=== PATIENT | female | born 2000 | race Caucasian/White ===

== ENCOUNTER 2018-03-21 18:26 | Emergency (ER) | payer MEDICAID ==
[~2018-03-21] VITALS: Ht 175.3 cm; Wt 136.4 kg
[2018-03-21 18:38] VITALS: BP 132/82
[2018-03-21] MEDS ORDERED: epiNEPHrine inj 0.3 MG in BUPIVAcaine 0.5% inj/PF 29.7 ML SQ ONE (19:10)
[2018-03-21] MEDS ORDERED: LORazepam 1 MG tablet PO ONE ×2 (19:10→19:20)
[2018-03-21] MEDS ORDERED: HYDROcodone/acetaminophen 10/325mg tab PO ONE (19:10)
[2018-03-21] MEDS ORDERED: HYDROcodone/acetaminophen 5mg/325mg tablet PO ONE (19:20)
[2018-03-21] MEDS ORDERED: HYDR-3965 PO (20:25)
== END 2018-03-21 20:50 | disposition home or self-care (01) ==
LOC: ER 18:27
DX: S82.401A Unspecified fracture of shaft of right fibula, initial encounter for closed fracture (principal); W18.49XA Other slipping, tripping and stumbling without falling, initial encounter; Y93.89 Activity, other specified; Y92.89 Other specified places as the place of occurrence of the external cause; Y99.8 Other external cause status
CPT/HCPCS: 29515; 73610; 99284; A6449; J0171

== ENCOUNTER 2018-04-01 13:18 | Day surgery (SDC) | payer MEDICAID ==
[2018-03-30 14:26] LABS: BASOPHILS # (AUTO) 0.1 X10'3 (0-0.2); BASOPHILS % (AUTO) 0.9 % (0-1); EOSINOPHILS # (AUTO) 0.1 X10'3 (0-0.9); EOSINOPHILS % (AUTO) 1.1 % (0-6); LYMPHOCYTES # (AUTO) 2.4 X10'3 (1.1-4.8); LYMPHOCYTES % (AUTO) 21.1 % (21-51); MEAN CORPUSCULAR HEMOGLOBIN 27.1 PG (27.0-31.0); MEAN CORPUSCULAR HGB CONC 33.2 % (33.0-36.5); MEAN CORPUSCULAR VOLUME 81.7 FL (78-98); MEAN PLATELET VOLUME 9.8 FL (7.4-10.4); MONOCYTES # (AUTO) 0.6 X10'3 (0-0.9); MONOCYTES % (AUTO) 5.4 % (2-12); NEUTROPHILS # (AUTO) 8.3 X10'3 (1.8-7.7); NEUTROPHILS % (AUTO) 71.5 % (42-75); PRE OP HEMATOCRIT 39.9 % (35.0-45.0); PRE OP HEMOGLOBIN 13.3 g/dL (12.0-16.0); PRE OP PLATELET COUNT 407 X10'3 (140-440); RED BLOOD COUNT 4.88 X10'6 (4.20-5.60); RED CELL DISTRIBUTION WIDTH 14.9 % (11.5-14.5)
[2018-03-30 14:41] LABS: ALBUMIN 3.5 G/DL (3.4-5.0); ALBUMIN/GLOBULIN RATIO 0.8 (1.1-1.5); ALKALINE PHOSPHATASE 122 IU/L (20-180); BLOOD UREA NITROGEN 17 MG/DL (7-18); BUN/CREATININE RATIO 18.5 (6.6-38.0); CALCIUM 9.1 MG/DL (8.5-10.1); CHLORIDE 102 MMOL/L (99-107); CREATININE 0.92 MG/DL (0.40-0.90); PRE OP ALT 37 U/L (30-65); PRE OP ANION GAP 9 (8-16); PRE OP AST 20 U/L (10-37); PRE OP BILIRUB, TOTAL 0.5 MG/DL (0.0-1.0); PRE OP GLUCOSE 76 MG/DL (70-104); PRE OP POTASSIUM 3.7 MMOL/L (3.4-5.1); PRE OP SODIUM 138 MMOL/L (135-145); TOTAL CARBON DIOXIDE 27.3 MMOL/L (24-32); TOTAL PROTEIN 8.1 G/DL (6.4-8.2); eGFR 79 ML/MIN
[2018-03-30 14:54] LABS: HCG SERUM QL NEGATIVE
[~2018-04-01] VITALS: Ht 175.3 cm; Wt 127.2 kg
[2018-04-01] VITALS (8 sets, daily range): BP systolic 124–134; BP diastolic 66–75
[~2018-04-01 13:18] MED LIST: FLUO40CA PO; RISP0.5T3 PO; ceFAZolin inj. 3,000 MG in normal saline 100ml IV soln 100 ML IV ONE; famotidine 20mg tablet PO ONE; ringers solution, lacted 1,000 ML IV SCH; vancomycin inj 1,500 MG in normal saline 300ml IV soln IV ONE
[2018-04-01] MEDS ORDERED: ceFAZolin 1000mg inj ONE (15:18)
[2018-04-01] MEDS ORDERED: BUPIVAcaine/PF 2.5mg/ml (0.25%) 10ml vial ONE (15:19)
[2018-04-01] MEDS ORDERED: cloNIDine hcl/PF 100mcg/ml inj ONE (15:33)
[2018-04-01] MEDS ORDERED: ROPIVAcaine 0.5% (5mg/ml) 30ml vial ONE (15:33)
[2018-04-01] MEDS ORDERED: midazolam 2 mg/2 ml injection ONE (15:35)
[2018-04-01] MEDS ORDERED: fentaNYL/PF 50MCG/1 ML 2ML syringe ONE ×3 (15:35→16:57)
[2018-04-01] MEDS ORDERED: ringers solution, lacted 1,000 ML IV SCH (15:41)
[2018-04-01] MEDS ORDERED: meperidine/PF 25mg/ml syringe IV PRN ×3 (15:45)
[2018-04-01] MEDS ORDERED: morphine 4 MG/ML inj SYRINge IV PRN ×2 (15:45)
[2018-04-01] MEDS ORDERED: proCHLORperazine 10 MG/2 ml inj IV PRN (15:45)
[2018-04-01] MEDS ORDERED: ondansetron/PF 4mg/2ml inj IV PRN (15:45)
[2018-04-01] MEDS ORDERED: sevoflurane 250ml liquid IH ONE (16:01)
[2018-04-01] MEDS ORDERED: dexamethasone sod phosphate 10mg/ml inj ONE (16:01)
[2018-04-01] MEDS ORDERED: propofol inj 20 ML IV ONE (16:53)
[2018-04-01] MEDS ORDERED: ondansetron/PF 4mg/2ml inj ONE (16:53)
== END 2018-04-01 19:06 | disposition home or self-care (01) ==
LOC: PAS 13:18
PROVIDERS: ATTEND Orthopaedic Surgery
DX: S82.841A Displaced bimalleolar fracture of right lower leg, initial encounter for closed fracture (principal); G43.909 Migraine, unspecified, not intractable, without status migrainosus; I10 Essential (primary) hypertension; J45.998 Other asthma; E11.9 Type 2 diabetes mellitus without complications; G89.29 Other chronic pain; F41.8 Other specified anxiety disorders; F32.9 Major depressive disorder, single episode, unspecified; F90.8 Attention-deficit hyperactivity disorder, other type; E66.01 Morbid (severe) obesity due to excess calories; Z68.41 Body mass index [BMI] 40.0-44.9, adult; Z79.891 Long term (current) use of opiate analgesic; Z90.89 Acquired absence of other organs; Z98.890 Other specified postprocedural states; Z79.899 Other long term (current) drug therapy; W18.49XA Other slipping, tripping and stumbling without falling, initial encounter; Y93.89 Activity, other specified; Y92.89 Other specified places as the place of occurrence of the external cause; Y99.8 Other external cause status
CPT/HCPCS: 27814; 36415; 80053; 83036; 84703; 85025; 93005; A6449; C1713; J0690; J0735; J1100; J2250; J2405; J2704; J2795; J3010; J3370; J7030; J7120; A7000; J3490

== ENCOUNTER 2018-04-12 15:02 | Outpatient (CLI) | payer MEDICAID ==
[~2018-04-12 15:02] MED LIST changes: -ceFAZolin inj. 3,000 MG in normal saline 100ml IV soln 100 ML IV ONE; -famotidine 20mg tablet PO ONE; -ringers solution, lacted 1,000 ML IV SCH; -vancomycin inj 1,500 MG in normal saline 300ml IV soln IV ONE
[2018-04-12 15:17] VITALS: BP 130/79
[2018-04-12] MEDS ORDERED: LIDOcaine 2% 5ml jelly ONE (15:27)
== END 2018-04-12 16:30 | disposition home or self-care (01) ==
LOC: ORTHO 15:02
PROVIDERS: ATTEND Nurse Practitioner Family
DX: S82.841G Displaced bimalleolar fracture of right lower leg, subsequent encounter for closed fracture with delayed healing (principal); G43.909 Migraine, unspecified, not intractable, without status migrainosus; F32.9 Major depressive disorder, single episode, unspecified; W01.0XXD Fall on same level from slipping, tripping and stumbling without subsequent striking against object, subsequent encounter
CPT/HCPCS: 73600; 99214; A4590

== ENCOUNTER 2018-04-26 14:46 | Outpatient (CLI) | payer MEDICAID ==
[2018-04-26 14:47] VITALS: BP 133/90
== END 2018-04-26 15:39 | disposition home or self-care (01) ==
LOC: ORTHO 14:46
PROVIDERS: ATTEND Nurse Practitioner Family
DX: S82.841D Displaced bimalleolar fracture of right lower leg, subsequent encounter for closed fracture with routine healing (principal); G43.909 Migraine, unspecified, not intractable, without status migrainosus; F32.9 Major depressive disorder, single episode, unspecified; W01.0XXD Fall on same level from slipping, tripping and stumbling without subsequent striking against object, subsequent encounter
CPT/HCPCS: 73600; 99213

== ENCOUNTER 2018-05-24 13:22 | Outpatient (CLI) | payer MEDICAID ==
[2018-05-24 13:16] VITALS: BP 142/103
== END 2018-05-24 14:00 | disposition home or self-care (01) ==
LOC: ORTHO 13:22
PROVIDERS: ATTEND Nurse Practitioner Family
DX: S82.841D Displaced bimalleolar fracture of right lower leg, subsequent encounter for closed fracture with routine healing (principal); F90.9 Attention-deficit hyperactivity disorder, unspecified type; W01.0XXD Fall on same level from slipping, tripping and stumbling without subsequent striking against object, subsequent encounter
CPT/HCPCS: 73610

== ENCOUNTER 2018-06-14 13:10 | Outpatient (CLI) | payer MEDICAID ==
[2018-06-14 12:54] VITALS: BP 145/82
== END 2018-06-14 13:37 | disposition home or self-care (01) ==
LOC: ORTHO 13:10
PROVIDERS: ATTEND Nurse Practitioner Family
DX: S82.841D Displaced bimalleolar fracture of right lower leg, subsequent encounter for closed fracture with routine healing (principal); G43.909 Migraine, unspecified, not intractable, without status migrainosus; F32.9 Major depressive disorder, single episode, unspecified; W22.8XXD Striking against or struck by other objects, subsequent encounter
CPT/HCPCS: 73600; 99213

== ENCOUNTER 2018-07-13 13:39 | Outpatient (CLI) | payer MEDICAID ==
[2018-07-13 13:38] VITALS: BP 125/88
== END 2018-07-13 14:29 | disposition home or self-care (01) ==
LOC: ORTHO 13:39
PROVIDERS: ATTEND Nurse Practitioner Family
DX: S82.841D Displaced bimalleolar fracture of right lower leg, subsequent encounter for closed fracture with routine healing (principal); G43.909 Migraine, unspecified, not intractable, without status migrainosus; F32.9 Major depressive disorder, single episode, unspecified; W01.0XXD Fall on same level from slipping, tripping and stumbling without subsequent striking against object, subsequent encounter
CPT/HCPCS: 73600; 99213

== ENCOUNTER 2018-08-16 14:42 | Outpatient (CLI) | payer MEDICAID ==
[2018-08-16 14:55] VITALS: BP 154/86
== END 2018-08-16 15:25 | disposition home or self-care (01) ==
LOC: ORTHO 14:42
PROVIDERS: ATTEND Nurse Practitioner Family
DX: S82.841D Displaced bimalleolar fracture of right lower leg, subsequent encounter for closed fracture with routine healing (principal); Z79.899 Other long term (current) drug therapy; W18.49XD Other slipping, tripping and stumbling without falling, subsequent encounter
CPT/HCPCS: 73600; 99213

== ENCOUNTER 2018-11-06 16:46 | Emergency (ER) | payer MEDICAID ==
[~2018-11-06] VITALS: Ht 170.2 cm; Wt 131.6 kg
[2018-11-06 17:17] LABS: CLARITY,URINE SLIGHTLY CLOUDY (Clear); COLOR,URINE YELLOW (Yellow); GLUCOSE, URINE NEGATIVE (Neg); KETONES,URINE NEGATIVE (Neg); LEUKOCYTE ESTERASE ,URINE NEGATIVE (Neg); NITRITES, URINE NEGATIVE (Neg); OCCULT BLOOD,URINE LARGE (Neg); PROTEIN,URINE TRACE mg/dl (Neg); UROBILINOGEN,URINE 0.2 E.U/dL (0.2-1.0)
[2018-11-06 17:18] LABS: URINE HCG NEGATIVE (NEG)
[2018-11-06 17:23] LABS: UA COLLECTION TYPE CLN CATCH MIDSTREAM
[2018-11-06 17:27] LABS: RBC,URINE TNTC /HPF (0-2)
[2018-11-06 17:28] LABS: BACTERIA,URINE FEW /HPF (Neg); MUCUS STRANDS NONE SEEN /LPF (Neg); SQUAMOUS EPITHELIAL CELL,UR FEW /LPF (FEW)
[2018-11-06 17:45] LABS: BASOPHILS # (AUTO) 0.1 X10'3 (0-0.2); BASOPHILS % (AUTO) 0.4 % (0-1); EOSINOPHILS % (AUTO) 0.1 % (0-6); HEMATOCRIT 41.5 % (35.0-45.0); HEMOGLOBIN 13.6 g/dl (12.0-16.0); LYMPHOCYTES # (AUTO) 1.7 X10'3 (1.1-4.8); LYMPHOCYTES % (AUTO) 9.9 % (21-51); MEAN CORPUSCULAR HEMOGLOBIN 26.5 PG (27.0-31.0); MEAN CORPUSCULAR HGB CONC 32.7 g/dL (33.0-36.5); MEAN CORPUSCULAR VOLUME 81.1 FL (78-98); MEAN PLATELET VOLUME 9.8 FL (7.4-10.4); MONOCYTES # (AUTO) 0.6 X10'3 (0-0.9); MONOCYTES % (AUTO) 3.5 % (2-12); NEUTROPHILS % (AUTO) 86.1 % (42-75); PLATELET COUNT 352 X10'3 (140-440); RED BLOOD COUNT 5.12 X10'6 (4.20-5.60); RED CELL DISTRIBUTION WIDTH 15.1 % (11.5-14.5); WHITE BLOOD COUNT 17.4 X10'3 (4.5-11.0)
[2018-11-06 17:55] LABS: ALANINE AMINOTRANSFERASE 40 U/L (12-78); ALBUMIN 3.7 G/DL (3.4-5.0); ALBUMIN/GLOBULIN RATIO 0.9 (1.1-1.5); ALKALINE PHOSPHATASE 130 IU/L (20-180); ANION GAP 11 (8-16); ASPARTATE AMINO TRANSFERASE 22 U/L (10-37); BILIRUBIN,TOTAL 0.3 MG/DL (0.1-1.0); BLOOD UREA NITROGEN 8 MG/DL (7-18); BUN/CREATININE RATIO 9.4 (6.6-38.0); CALCIUM 9.1 MG/DL (8.5-10.1); CHLORIDE 105 MMOL/L (99-107); CREATININE 0.85 MG/DL (0.40-0.90); GLUCOSE 105 MG/DL (70-104); POTASSIUM 3.9 MMOL/L (3.5-5.1); SODIUM 139 MMOL/L (135-145); TOTAL PROTEIN 7.9 G/DL (6.4-8.2); eGFR 86 ML/MIN
[2018-11-06] MEDS ORDERED: normal saline 1000ML IV soln IVB ONE (18:10)
[2018-11-06] MEDS ORDERED: ketorolac tromethamine 15mg/ml inj. IV ONE (18:10)
[2018-11-06] MEDS ORDERED: morphine 4 MG/ML inj SYRINge IM ONE (19:20)
--- NOTE | 2018-11-06 19:30 | NUR ---
Patient to CT via wheelchair.
--- NOTE | 2018-11-06 20:04 | NUR ---
Morphine just given, patient resting comfortably on gurney.
[2018-11-06] MEDS ORDERED: ACET-812 PO (20:17)
[2018-11-06] MEDS ORDERED: CEPH-572 PO (20:17)
[2018-11-06] MEDS ORDERED: ONDA4TAB6 PO (20:20)
[2018-11-06 20:53] VITALS: BP 143/81
== END 2018-11-06 20:54 | disposition home or self-care (01) ==
LOC: ER 16:47
DX: R10.32 Left lower quadrant pain (principal); R30.0 Dysuria; R00.0 Tachycardia, unspecified; R11.2 Nausea with vomiting, unspecified; I10 Essential (primary) hypertension; E11.9 Type 2 diabetes mellitus without complications; G43.909 Migraine, unspecified, not intractable, without status migrainosus; E66.9 Obesity, unspecified; J45.909 Unspecified asthma, uncomplicated; G89.29 Other chronic pain; Z90.89 Acquired absence of other organs; Z79.2 Long term (current) use of antibiotics; Z79.899 Other long term (current) drug therapy; Z97.5 Presence of (intrauterine) contraceptive device
CPT/HCPCS: 36415; 74176; 76775; 80053; 81001; 81025; 85025; 85610; 87088; 96361; 96372; 96374; 99284; J1885; J2270; J7030

== ENCOUNTER 2019-05-01 15:57 | Emergency (ER) | payer MEDICAID ==
[~2019-05-01] VITALS: Ht 175.3 cm; Wt 139.0 kg
[~2019-05-01 15:57] MED LIST changes: +ACET-812 PO; +ONDA4TAB6 PO
[2019-05-01] MEDS ORDERED: HYDROcodone/acetaminophen 10/325mg tab PO ONE (19:00)
[2019-05-01] MEDS ORDERED: orphenadrine citrate 60mg/2ml inj. IM ONE (19:00)
[2019-05-01 19:44] VITALS: BP 120/86
== END 2019-05-01 19:40 | disposition short-term general hospital (02) ==
LOC: ER 15:58
DX: M54.16 Radiculopathy, lumbar region (principal); R20.0 Anesthesia of skin; R53.1 Weakness; E66.01 Morbid (severe) obesity due to excess calories; G43.909 Migraine, unspecified, not intractable, without status migrainosus; I10 Essential (primary) hypertension; J45.909 Unspecified asthma, uncomplicated; E11.9 Type 2 diabetes mellitus without complications; G89.29 Other chronic pain; Q76.0 Spina bifida occulta; Z98.890 Other specified postprocedural states; Z90.89 Acquired absence of other organs; Z79.899 Other long term (current) drug therapy
CPT/HCPCS: 96372; 99291; J2360

== ENCOUNTER 2019-10-07 08:38 | Emergency (ER) | payer MEDICAID ==
[~2019-10-07] VITALS: Ht 175.3 cm; Wt 138.6 kg
[2019-10-07] MEDS ORDERED: normal saline 1000ML IV soln IVB ONE (09:00)
[2019-10-07] MEDS ORDERED: ondansetron/PF 4mg/2ml inj IV ONE (09:00)
[2019-10-07 09:28] LABS: BASOPHILS # (AUTO) 0.1 X10'3 (0-0.2); EOSINOPHILS # (AUTO) 0.1 X10'3 (0-0.9); HEMATOCRIT 39.4 % (35.0-45.0); HEMOGLOBIN 13.2 g/dl (12.0-16.0); LYMPHOCYTES # (AUTO) 2.9 X10'3 (1.1-4.8); LYMPHOCYTES % (AUTO) 24.2 % (21-51); MEAN CORPUSCULAR HGB CONC 33.4 g/dL (33.0-36.5); MEAN CORPUSCULAR VOLUME 80.7 FL (78-98); MEAN PLATELET VOLUME 9.9 FL (7.4-10.4); MONOCYTES # (AUTO) 0.5 X10'3 (0-0.9); MONOCYTES % (AUTO) 4.2 % (2-12); NEUTROPHILS # (AUTO) 8.3 X10'3 (1.8-7.7); NEUTROPHILS % (AUTO) 69.6 % (42-75); PLATELET COUNT 272 X10'3 (140-440); RED BLOOD COUNT 4.89 X10'6 (4.20-5.60); RED CELL DISTRIBUTION WIDTH 15.3 % (11.5-14.5); WHITE BLOOD COUNT 11.9 X10'3 (4.5-11.0)
[2019-10-07 09:30] LABS: URINE HCG NEGATIVE (NEG)
[2019-10-07 09:33] LABS: CLARITY,URINE CLEAR (Clear); COLOR,URINE YELLOW (Yellow); GLUCOSE, URINE NEGATIVE (Neg); KETONES,URINE NEGATIVE (Neg); LEUKOCYTE ESTERASE ,URINE SMALL (Neg); NITRITES, URINE NEGATIVE (Neg); OCCULT BLOOD,URINE NEGATIVE (Neg); PROTEIN,URINE NEGATIVE (Neg); UROBILINOGEN,URINE 0.2 E.U/dL (0.2-1.0)
[2019-10-07 09:43] LABS: ALANINE AMINOTRANSFERASE 31 U/L (12-78); ALBUMIN 3.3 G/DL (3.4-5.0); ALBUMIN/GLOBULIN RATIO 0.8 (1.1-1.5); ALKALINE PHOSPHATASE 124 IU/L (20-180); ANION GAP 9 (8-16); ASPARTATE AMINO TRANSFERASE 21 U/L (10-37); BILIRUBIN,TOTAL 0.3 MG/DL (0.1-1.0); BLOOD UREA NITROGEN 10 MG/DL (7-18); BUN/CREATININE RATIO 10.8 (6.6-38.0); CALCIUM 8.6 MG/DL (8.5-10.1); CHLORIDE 105 MMOL/L (99-107); CREATININE 0.93 MG/DL (0.40-0.90); GLUCOSE 128 MG/DL (70-104); LIPASE 174 U/L (73-393); SODIUM 137 MMOL/L (135-145); TOTAL CARBON DIOXIDE 23.1 MMOL/L (24-32); TOTAL PROTEIN 7.6 G/DL (6.4-8.2); eGFR 77 ML/MIN
[2019-10-07 09:48] LABS: UA COLLECTION TYPE CLN CATCH MIDSTREAM
[2019-10-07 09:49] LABS: BACTERIA,URINE FEW /HPF (Neg); MUCUS STRANDS FEW /LPF (Neg); RBC,URINE 0-2 /HPF (0-2); SQUAMOUS EPITHELIAL CELL,UR FEW /LPF (FEW); TRANSITIONAL EPI CELLS,URINE FEW /HPF; WBC,URINE 0-4 /HPF (0-4)
[2019-10-07 09:55] VITALS: BP 143/53
== END 2019-10-07 10:26 | disposition home or self-care (01) ==
LOC: ER 08:40
DX: R10.11 Right upper quadrant pain (principal); R11.2 Nausea with vomiting, unspecified; R19.7 Diarrhea, unspecified; G43.909 Migraine, unspecified, not intractable, without status migrainosus; I10 Essential (primary) hypertension; E11.9 Type 2 diabetes mellitus without complications; G89.29 Other chronic pain; E66.01 Morbid (severe) obesity due to excess calories; Z98.890 Other specified postprocedural states; Z90.89 Acquired absence of other organs
CPT/HCPCS: 36415; 76700; 80053; 81001; 81025; 83690; 85025; 87088; 96360; 96361; 99284; J7030

== ENCOUNTER 2022-12-31 17:01 | Emergency (ER) | payer MEDICARE, MEDICAID ==
[~2022-12-31] VITALS: Ht 175.3 cm; Wt 136.0 kg
[~2022-12-31 17:01] MED LIST changes: -RISP0.5T3 PO; +RISP0.5T65 PO
[2022-12-31] MEDS ORDERED: ondansetron 4mg rapidly disintigrating tab PO ONE (19:30)
[2022-12-31] MEDS ORDERED: morphine 4 MG/ML inj SYRINge IM ONE (19:30)
[2022-12-31] MEDS ORDERED: BUPIVAcaine/PF 2.5 mg/ml (0.25%) 30ml vial IJ ONE (20:15)
--- NOTE | 2022-12-31 20:49 | NUR ---
DR GILL INFORMED SUPPLIES ARE AT BEDSIDE
[2022-12-31 21:43] VITALS: BP 173/112
== END 2022-12-31 21:45 | disposition home or self-care (01) ==
LOC: ER 17:02
DX: S43.085A Other dislocation of left shoulder joint, initial encounter (principal); G43.909 Migraine, unspecified, not intractable, without status migrainosus; I10 Essential (primary) hypertension; G89.29 Other chronic pain; M54.9 Dorsalgia, unspecified; F31.9 Bipolar disorder, unspecified; Z88.8 Allergy status to other drugs, medicaments and biological substances; Z79.899 Other long term (current) drug therapy; W18.39XA Other fall on same level, initial encounter; Y93.89 Activity, other specified; Y92.89 Other specified places as the place of occurrence of the external cause; Y99.8 Other external cause status
CPT/HCPCS: 23605; 73020; 73030; 96372; 99284; J2270; 25605; A4565